=== PATIENT | male | born 1955 | race Caucasian/White ===

== ENCOUNTER → 2016-06-30 | Outpatient (CLI) | payer OTHER | END | disposition home or self-care (01) | LOC: US 06-24 15:00 | DX: N32.89 Other specified disorders of bladder (principal); N18.9 Chronic kidney disease, unspecified; Z96.0 Presence of urogenital implants ==

== ENCOUNTER → 2020-08-12 | Outpatient (CLI) | payer OTHER | END | disposition home or self-care (01) | LOC: MRI 00:30 | PROVIDERS: ATTEND Anesthesiology | DX: M50.31 Other cervical disc degeneration, high cervical region (principal); M48.02 Spinal stenosis, cervical region; M50.322 Other cervical disc degeneration at C5-C6 level ==